=== PATIENT | female | born 1970 | race Caucasian/White ===

== ENCOUNTER 2021-04-08 15:48 | Emergency (ER) | payer OTHER ==
[~2021-04-08] VITALS: Ht 167.6 cm; Wt 77.1 kg
[2021-04-08] MEDS ORDERED: METFORMIN HCL1000 M1 PO (15:59)
[2021-04-08] MEDS ORDERED: LEVOTHYROXINE125 MCG PO (16:00)
== END 2021-04-08 17:52 | disposition home or self-care (01) ==
LOC: ED 15:48 → EDBD 15:49 → ED 17:52
DX: S13.4XXA Sprain of ligaments of cervical spine, initial encounter (principal); M25.511 Pain in right shoulder; V89.2XXA Person injured in unspecified motor-vehicle accident, traffic, initial encounter
CPT/HCPCS: 73030; 99283-25; A9270